=== PATIENT | male | born 1940 | race Caucasian/White ===

== ENCOUNTER 2016-03-31 13:34 | Outpatient (RCR) | payer MEDICARE, MEDICAID ==
--- OUTSIDE RECORDS SUMMARY | 2016-03-23 10:23 | XMS REPORT | Continuity of Care Document ---
Author Author [facility] Organization [facility] Address Unknown Phone Unavailable Care Team Providers Care Medical/Surgery Registered Nurse Name Role Phone PCP Unavailable Source Comments Some departments are not documenting in the electronic medical record. If you do not see the information that you expected, contact Release of Information in the Health Information Management department at [phone] for further assistance in locating additional records.[facility] Active Allergies and Adverse Reactions Not on File Current Medications Not on file Active Problems Not on file Social History Tobacco Use Types Packs/Day Years Used Date Never Assessed Plan of Care Health Maintenance Due Date Last Done Comments Physical (Comprehensive) 1947 Exam Pertussis Vaccine 1953 Tetanus Vaccine 07/09/1959 Colorectal Cancer 1992 Screening Shingles Vaccine 2002 Prevnar/Pneumovax (#1) 07/09/2007 Influenza Vaccine 12/09/2015 Results from Last 3 Months Not on file
--- OUTSIDE RECORDS SUMMARY | 2016-03-24 09:09 | XMS REPORT | Continuity of Care Document ---
Author Author [facility] Organization [facility] Address Unknown Phone Unavailable Care Team Providers Care Lumber Marker Name Role Phone PCP Unavailable Source Comments Some departments are not documenting in the electronic medical record. If you do not see the information that you expected, contact Release of Information in the Health Information Management department at [phone] for further assistance in locating additional records.[facility] Active Allergies and Adverse Reactions Not on [...]
[~2016-03-31 13:34] MED LIST: BUPR150T7 PO; CITA40TA11 PO; DIAZ10TA PO; DIAZ5TAB3 PO; FURO40TA4 PO; HYDR-3820 PO; ISM60TCR PO; LACT20SO2 PO; LISI40TA PO; OXYB15TA PO; PANT40TA3 PO; POTA20TA15 PO; PRED10TA22 PO; PROC10TA PO
[2016-04-05] MEDS ORDERED: APIX5TAB PO (10:37)
[2016-04-05] MEDS ORDERED: HYDR-3820 PO (10:37)
[2016-04-05] MEDS ORDERED: LEVO750T9 PO (10:37)
[2016-04-05] MEDS ORDERED: FLUC100T PO (10:37)
[2016-04-05] MEDS ORDERED: PRED10TA22 PO (10:37)
== END 2016-06-22 | disposition home or self-care (01) ==
LOC: ONC 13:34
PROVIDERS: ATTEND Radiology Radiation Oncology
DX: Z51.0 Encounter for antineoplastic radiation therapy (principal); C34.12 Malignant neoplasm of upper lobe, left bronchus or lung
CPT/HCPCS: 77290; 77295; 77332; 77334; 77412; 77417; 77470; 99214